=== PATIENT | female | born 1935 | race Caucasian/White ===

== ENCOUNTER 2017-10-23 14:47 | Outpatient (CLI) | payer MEDICARE | END 2017-10-23 14:48 | disposition home or self-care (01) | DRG 556 | LOC: CONVCARE 14:47 | PROVIDERS: ATTEND Orthopaedic Surgery | DX: M79.606 Pain in leg, unspecified (principal) | CPT/HCPCS: 76000; 87205; Q9967 ==

== ENCOUNTER 2017-11-14 17:24 | Inpatient (IN) | payer MEDICARE ==
[2017-11-14 18:23] LABS: APPEARANCE,URINE Cloudy; BILIRUBIN,URINE NEGATIVE (NEGATIVE); COLOR,URINE Yellow; GLUCOSE, URINE (UA) NEGATIVE (NEGATIVE); KETONES,URINE NEGATIVE (NEGATIVE); LEUKOCYTE ESTERASE ,URINE 1+ (NEGATIVE); NITRATE,URINE NEGATIVE (NEGATIVE); OCCULT BLOOD,URINE TRACE INTACT (NEG-TRACE); PH,URINE 5.5; UROBILINOGEN,URINE 0.2 (0.2-1.0 EU)
[2017-11-14 18:35] LABS: BACTERIA 4+ (< 1+); CRYSTALS NEGATIVE (0-3 AVE/HPF); RBC,URINE NEG (0-3AV/HPF); WBC,URINE TNTC (0-5AV/HPF)
[2017-11-14] MEDS ORDERED: CEFTRIAXONE 1 GM PDS 1 GM in SODIUM CHLORIDE 0.9% 50 ML 50 ML IV ONE (19:04)
[2017-11-14] MEDS ORDERED: CEFTRIAXONE 1 GM PDS ONE (19:06)
[2017-11-14 19:28] LABS: ALBUMIN 2.6 gm/dl (3.4-5.0); BILIRUBIN,DIRECT 0.1 mg/dl (0.0-0.2); BILIRUBIN,TOTAL 0.4 mg/dl (0.2-1.0); TOTAL PROTEIN 7.6 gm/dl (6.4-8.2); TROP I 0.031 ng/ml (0.000-0.056)
[2017-11-14] MEDS ORDERED: HYDROMORPHONE HCL 2 MG/ML SOL IV ONE (20:13)
[2017-11-14] MEDS ORDERED: OXYCODONE HYDROCHLORIDE 10 MG TER PO SCH (20:15)
[2017-11-14] MEDS ORDERED: HYDROMORPHONE 1 MG/ML SYRINGE ONE (20:19)
[2017-11-14] MEDS ORDERED: ALPRAZOLAM 0.25 MG TAB PO PRN (20:23)
[2017-11-14] MEDS: OXYCODONE HYDROCHLORIDE 10 MG TER PO SCH (21:05)
[2017-11-14] MEDS: METOPROLOL TARTRATE 50 MG TAB PO SCH (21:12)
[2017-11-14] MEDS: ENOXAPARIN 40 MG SOL SC SCH (21:12)
[2017-11-14] MEDS: TORSEMIDE 20 MG TAB PO SCH (21:12)
[2017-11-14] MEDS: OXYCODONE HYDROCHLORIDE 5 MG TAB PO SCH (21:18)
[2017-11-14] MEDS: NOVOLOG 70/30 FLEXPEN SC SCH (22:34)
[2017-11-15] MEDS: OXYCODONE HYDROCHLORIDE 5 MG TAB PO SCH ×6 (00:54→20:21)
[2017-11-15] MEDS: TORSEMIDE 20 MG TAB PO SCH (05:14)
[2017-11-15 07:37] LABS: CALCIUM 8.7 mg/dl (8.5-10.1); CARBON DIOXIDE 31.9 mEq/L (21-32); CREATININE 1.52 mg/dl (0.60-1.00); POTASSIUM 3.3 mMol/L (3.5-5.1)
[2017-11-15] MEDS: NOVOLOG 70/30 FLEXPEN SC SCH ×2 (08:36→21:14)
[2017-11-15] MEDS: METOPROLOL TARTRATE 50 MG TAB PO SCH ×2 (08:49→21:15)
[2017-11-15] MEDS: ALLOPURINOL 100 MG TAB PO SCH (08:49)
[2017-11-15] MEDS: CLOPIDOGREL 75 MG TAB PO SCH (08:49)
[2017-11-15] MEDS: ISOSORBIDE MONONITRATE 30 MG TER PO SCH (08:50)
[2017-11-15] MEDS: OXYCODONE HYDROCHLORIDE 10 MG TER PO SCH ×2 (09:50→21:21)
[2017-11-15] MEDS: LISINOPRIL 20 MG TAB PO SCH (09:51)
[2017-11-15] MEDS ORDERED: PATIENT EDUCATION 1 MISC PRN (14:00)
[2017-11-15] MEDS: TORSEMIDE 10 MG TABLET PO SCH (18:22)
[2017-11-15] MEDS: ENOXAPARIN 40 MG SOL SC SCH (21:18)
[2017-11-15] MEDS: CIPROFLOXACIN HCL 500 MG TAB PO SCH (21:29)
[2017-11-16] MEDS: OXYCODONE HYDROCHLORIDE 5 MG TAB PO SCH ×3 (00:37→08:32)
[2017-11-16 00:41] LABS: *FOLATE 6.8 ng/ml (2.6-20.0)
[2017-11-16] MEDS: TORSEMIDE 10 MG TABLET PO SCH ×2 (06:18→18:28)
[2017-11-16 07:50] LABS: CALCIUM 8.5 mg/dl (8.5-10.1); CARBON DIOXIDE 31.1 mEq/L (21-32); CREATININE 2.07 mg/dl (0.60-1.00); POTASSIUM 3.5 mMol/L (3.5-5.1); THYROID STIMULATING HORMONE 4.539 uIU/ml (0.358-3.740)
[2017-11-16] MEDS: NOVOLOG 70/30 FLEXPEN SC SCH ×2 (08:32→20:36)
[2017-11-16] MEDS: LISINOPRIL 20 MG TAB PO SCH (08:32)
[2017-11-16] MEDS: CLOPIDOGREL 75 MG TAB PO SCH (08:33)
[2017-11-16] MEDS: OXYCODONE HYDROCHLORIDE 10 MG TER PO SCH ×2 (08:33→20:35)
[2017-11-16] MEDS: ALLOPURINOL 100 MG TAB PO SCH (08:33)
[2017-11-16] MEDS: CIPROFLOXACIN HCL 500 MG TAB PO SCH (08:33)
[2017-11-16] MEDS: METOPROLOL TARTRATE 50 MG TAB PO SCH ×2 (08:33→20:34)
[2017-11-16] MEDS: ISOSORBIDE MONONITRATE 30 MG TER PO SCH (08:34)
[2017-11-16] MEDS: AMLODIPINE 5 MG TAB PO SCH (10:39)
[2017-11-16] MEDS: AMOXICILLIN 125/5 ML BOTTLE PO SCH ×2 (10:40→20:43)
[2017-11-16] MEDS: OXYCODONE HYDROCHLORIDE 5 MG TAB PO PRN ×2 (12:48→18:28)
[2017-11-16] MEDS: ALPRAZOLAM 0.25 MG TAB PO SCH (20:35)
[2017-11-16] MEDS: ENOXAPARIN 40 MG SOL SC SCH (20:35)
[2017-11-17] MEDS: OXYCODONE HYDROCHLORIDE 5 MG TAB PO PRN ×2 (00:34→15:34)
[2017-11-17] MEDS: TORSEMIDE 10 MG TABLET PO SCH ×2 (06:15→18:13)
[2017-11-17] MEDS: AMOXICILLIN 125/5 ML BOTTLE PO SCH ×2 (08:56→21:10)
[2017-11-17] MEDS: OXYCODONE HYDROCHLORIDE 10 MG TER PO SCH ×2 (08:57→20:46)
[2017-11-17] MEDS: ALLOPURINOL 100 MG TAB PO SCH (08:58)
[2017-11-17] MEDS: METOPROLOL TARTRATE 50 MG TAB PO SCH ×2 (08:58→20:56)
[2017-11-17] MEDS: AMLODIPINE 5 MG TAB PO SCH (09:00)
[2017-11-17] MEDS: CLOPIDOGREL 75 MG TAB PO SCH (09:02)
[2017-11-17] MEDS: ISOSORBIDE MONONITRATE 30 MG TER PO SCH (09:05)
[2017-11-17] MEDS: NOVOLOG 70/30 FLEXPEN SC SCH ×2 (09:06→21:35)
[2017-11-17] MEDS: FENTANYL 12 MCG PATCH TDM TD SCH (11:12)
[2017-11-17] MEDS: ALPRAZOLAM 0.25 MG TAB PO SCH (20:53)
[2017-11-17] MEDS: ENOXAPARIN 40 MG SOL SC SCH (21:34)
[2017-11-18] MEDS: OXYCODONE HYDROCHLORIDE 5 MG TAB PO PRN ×2 (01:14→23:12)
[2017-11-18] MEDS: TORSEMIDE 10 MG TABLET PO SCH ×2 (06:20→18:17)
[2017-11-18] MEDS: NOVOLOG 70/30 FLEXPEN SC SCH ×2 (08:49→20:43)
[2017-11-18] MEDS: CLOPIDOGREL 75 MG TAB PO SCH (08:51)
[2017-11-18] MEDS: ALLOPURINOL 100 MG TAB PO SCH (08:51)
[2017-11-18] MEDS: OXYCODONE HYDROCHLORIDE 10 MG TER PO SCH ×2 (08:51→20:47)
[2017-11-18] MEDS: AMLODIPINE 5 MG TAB PO SCH (08:52)
[2017-11-18] MEDS: METOPROLOL TARTRATE 50 MG TAB PO SCH ×2 (08:52→20:56)
[2017-11-18] MEDS: ISOSORBIDE MONONITRATE 30 MG TER PO SCH (08:52)
[2017-11-18] MEDS: AMOXICILLIN 125/5 ML BOTTLE PO SCH ×2 (08:56→20:35)
[2017-11-18] MEDS: ENOXAPARIN 40 MG SOL SC SCH (20:42)
[2017-11-18] MEDS: ALPRAZOLAM 0.25 MG TAB PO SCH (20:46)
[2017-11-18] MEDS: DOCUSATE SODIUM 100 MG SGL PO PRN (20:52)
[2017-11-19] MEDS ORDERED: BISACODYL 10 MG SUP PR ONE ×2 (04:00→04:03)
[2017-11-19] MEDS: TORSEMIDE 10 MG TABLET PO SCH ×2 (06:20→17:46)
[2017-11-19 07:41] LABS: CALCIUM 7.9 mg/dl (8.5-10.1); CARBON DIOXIDE 28.9 mEq/L (21-32); CREATININE 1.93 mg/dl (0.60-1.00); POTASSIUM 4.4 mMol/L (3.5-5.1)
[2017-11-19] MEDS: METOPROLOL TARTRATE 50 MG TAB PO SCH ×2 (08:17→21:12)
[2017-11-19] MEDS: CLOPIDOGREL 75 MG TAB PO SCH (08:18)
[2017-11-19] MEDS: ISOSORBIDE MONONITRATE 30 MG TER PO SCH (08:18)
[2017-11-19] MEDS: ALLOPURINOL 100 MG TAB PO SCH (08:19)
[2017-11-19] MEDS: AMLODIPINE 5 MG TAB PO SCH (08:19)
[2017-11-19] MEDS: NOVOLOG 70/30 FLEXPEN SC SCH ×2 (08:23→21:23)
[2017-11-19] MEDS: AMOXICILLIN 125/5 ML BOTTLE PO SCH ×2 (08:23→21:11)
[2017-11-19] MEDS: OXYCODONE HYDROCHLORIDE 10 MG TER PO SCH ×2 (08:23→21:12)
[2017-11-19] MEDS: FENTANYL 12 MCG PATCH TDM TD SCH (14:35)
[2017-11-19] MEDS: NOVOLOG FLEXPEN SC SCH ×2 (17:38→21:21)
[2017-11-19] MEDS: ALPRAZOLAM 0.25 MG TAB PO SCH (21:11)
[2017-11-19] MEDS: ENOXAPARIN 40 MG SOL SC SCH (21:11)
[2017-11-20] MEDS: OXYCODONE HYDROCHLORIDE 5 MG TAB PO PRN ×2 (01:58→11:33)
[2017-11-20] MEDS: TORSEMIDE 10 MG TABLET PO SCH (06:24)
[2017-11-20 06:31] VITALS: BP 149/67; PULSE 76; RESP 16; TEMP 97.7; O2SAT 95
[2017-11-20] MEDS: NOVOLOG 70/30 FLEXPEN SC SCH (08:25)
[2017-11-20] MEDS: NOVOLOG FLEXPEN SC SCH ×2 (08:27→11:33)
[2017-11-20] MEDS: METOPROLOL TARTRATE 50 MG TAB PO SCH (08:33)
[2017-11-20] MEDS: ALLOPURINOL 100 MG TAB PO SCH (08:34)
[2017-11-20] MEDS: CLOPIDOGREL 75 MG TAB PO SCH (08:34)
[2017-11-20] MEDS: ISOSORBIDE MONONITRATE 30 MG TER PO SCH (08:34)
[2017-11-20] MEDS: AMOXICILLIN 125/5 ML BOTTLE PO SCH (08:36)
[2017-11-20] MEDS: OXYCODONE HYDROCHLORIDE 10 MG TER PO SCH (08:38)
[2017-11-20] MEDS: DOCUSATE SODIUM 100 MG SGL PO PRN (08:38)
[2017-11-20] MEDS ORDERED: AMLODIPINE 5 MG TAB PO SCH (09:00)
== END 2017-11-20 13:35 | DRG 945 ==
LOC: ED 17:24 → ACUTE CARE 20:15 → UNDOADMIN 20:15 → ACUTE CARE 20:30
PROVIDERS: ADMIT Family Medicine; ATTEND Family Medicine
PROC: F01K0FZ Muscle Performance Assessment of Musculoskeletal System - Upper Back / Upper Extremity using Assistive, Adaptive, Supportive or Protective Equipment (ICD-10-PCS; principal; 2017-11-16)
PROC: F01K5ZZ Range of Motion and Joint Integrity Assessment of Musculoskeletal System - Upper Back / Upper Extremity (ICD-10-PCS; 2017-11-16)
PROC: F02Z3FZ Grooming/Personal Hygiene Assessment using Assistive, Adaptive, Supportive or Protective Equipment (ICD-10-PCS; 2017-11-16)
DX: R53.1 Weakness (principal); N39.0 Urinary tract infection, site not specified; S32.020A Wedge compression fracture of second lumbar vertebra, initial encounter for closed fracture; R35.0 Frequency of micturition; R30.0 Dysuria; G95.89 Other specified diseases of spinal cord; S82.142A Displaced bicondylar fracture of left tibia, initial encounter for closed fracture; Z74.09 Other reduced mobility; M25.562 Pain in left knee; M25.462 Effusion, left knee; W19.XXXA Unspecified fall, initial encounter; Z91.81 History of falling; L89.322 Pressure ulcer of left buttock, stage 2; E11.9 Type 2 diabetes mellitus without complications; I10 Essential (primary) hypertension; B96.20 Unspecified Escherichia coli [E. coli] as the cause of diseases classified elsewhere
CPT/HCPCS: 36415; 71045; 72131; 73562; 73721; 80048; 80076; 81001; 82962; 84443; 84484; 87077; 87088; 87186; 93005; 93012; 96365; 96374; 99223; 99231; 99232; 99284; J0696; J1650; J1815; A6232; A9270-GY; J1170; L1830

== ENCOUNTER 2017-12-14 10:24 | Outpatient (CLI) | payer MEDICARE ==
[2017-11-20 06:31] VITALS: O2SAT 95
== END 2017-12-14 10:25 | disposition home or self-care (01) | DRG 561 ==
LOC: CONVCARE 10:24
PROVIDERS: ATTEND Orthopaedic Surgery
DX: S82.132D Displaced fracture of medial condyle of left tibia, subsequent encounter for closed fracture with routine healing (principal)
CPT/HCPCS: 73564

== ENCOUNTER 2018-01-18 12:17 | Outpatient (CLI) | payer MEDICARE ==
[2017-11-20 06:31] VITALS: O2SAT 95
== END 2018-01-18 12:18 | disposition home or self-care (01) | DRG 561 ==
LOC: CONVCARE 12:17
PROVIDERS: ATTEND Orthopaedic Surgery
DX: S82.142D Displaced bicondylar fracture of left tibia, subsequent encounter for closed fracture with routine healing (principal)
CPT/HCPCS: 73564

== ENCOUNTER 2018-07-16 11:42 | Outpatient (CLI) | payer MEDICARE, MEDICAID ==
[2017-11-20 06:31] VITALS: O2SAT 95
== END 2018-07-16 11:43 | disposition home or self-care (01) | DRG 556 ==
LOC: CONVCARE 11:42
PROVIDERS: ATTEND Orthopaedic Surgery
DX: M25.511 Pain in right shoulder (principal)
CPT/HCPCS: 73030

== ENCOUNTER 2018-10-12 20:20 | Emergency (ER) | payer MEDICARE, MEDICAID ==
[2018-10-12] MEDS ORDERED: FENTANYL 100MCG/2ML SOL IV ONE ×2 (20:34→21:39)
[2018-10-12] MEDS ORDERED: FENTANYL 100MCG/2ML SOL ONE ×2 (20:35→21:42)
[2018-10-12] MEDS: SODIUM CHLORIDE 0.9% FLUSH 10 ML SOL IV PRN ×2 (20:35→20:37)
[2018-10-12 20:38] LABS: BASOPHILS % (AUTO) 1 % (0-3); EOSINOPHILS % (AUTO) 1 % (0-9); HEMATOCRIT 34 % (35-47); HEMOGLOBIN 11.1 gm/dl (12.0-15.5); LYMPHOCYTES % (AUTO) 14.8 % (10-50); MEAN CORPUSCULAR HEMOGLOBIN 31.7 pg (27.0-32.0); MEAN CORPUSCULAR VOLUME 96 fL (81-99); NEUTROPHILS % (AUTO) 76.9 % (37-80)
[2018-10-12 20:58] LABS: ALBUMIN 2.3 gm/dl (3.4-5.0); BILIRUBIN,TOTAL 0.6 mg/dl (0.2-1.0); CALCIUM 8.2 mg/dl (8.5-10.1); CARBON DIOXIDE 25.2 mEq/L (21-32); TOTAL PROTEIN 6.5 gm/dl (6.4-8.2); TROP I 0.1 ng/ml (0.000-0.056)
[2018-10-12 21:30] LABS: APPEARANCE,URINE Slightly Cloudy; BILIRUBIN,URINE NEGATIVE (NEGATIVE); COLOR,URINE Yellow; GLUCOSE, URINE (UA) NEGATIVE (NEGATIVE); KETONES,URINE NEGATIVE (NEGATIVE); LEUKOCYTE ESTERASE ,URINE 1+ (NEGATIVE); NITRATE,URINE NEGATIVE (NEGATIVE); OCCULT BLOOD,URINE NEGATIVE (NEG-TRACE); PH,URINE 5.5; UROBILINOGEN,URINE 0.2 (0.2-1.0 EU)
[2018-10-12 21:39] VITALS: TEMP 97.7
[2018-10-12 21:40] LABS: BACTERIA 3+ (< 1+); CRYSTALS NEGATIVE (0-3 AVE/HPF); EPITHELIAL CELLS 0-3 (SQUAMOUS); RBC,URINE NEG (0-3AV/HPF); WBC,URINE 0-6 (0-5AV/HPF)
[2018-10-12] MEDS ORDERED: POTASSIUM CHLORIDE 10 MEQ TER PO ONE (21:54)
[2018-10-12] MEDS ORDERED: POTASSIUM CHLORIDE 10 MEQ TER ONE (21:57)
[2018-10-12 23:24] LABS: INR 1.14 (0.86-1.12)
[2018-10-13] MEDS ORDERED: FENTANYL 100MCG/2ML SOL IV ONE (00:33)
[2018-10-13] MEDS ORDERED: FENTANYL 100MCG/2ML SOL ONE (00:34)
[2018-10-13] MEDS: SODIUM CHLORIDE 0.9% FLUSH 10 ML SOL IV PRN (00:36)
[2018-10-13 02:55] VITALS: BP 161/42; PULSE 79; RESP 18; O2SAT 95
== END 2018-10-13 00:44 | disposition short-term general hospital (02) | DRG 536 ==
LOC: ED 20:20
DX: S32.810A Multiple fractures of pelvis with stable disruption of pelvic ring, initial encounter for closed fracture (principal); I45.2 Bifascicular block; W18.11XA Fall from or off toilet without subsequent striking against object, initial encounter; M25.552 Pain in left hip; I50.9 Heart failure, unspecified; Z79.899 Other long term (current) drug therapy
CPT/HCPCS: 36415; 70450; 72131; 72192; 73700; 80053; 81001; 83880; 84484; 85025; 85610; 87077; 87088; 87186; 93005; 96374; 99284; 99285; J3010; A9270-GY